=== PATIENT | female | born 1965 | race Caucasian/White ===

== ENCOUNTER → 2018-05-04 | Outpatient (CLI) | payer SELFPAY ==
--- NOTE | 2018-05-04 16:47 | Diagnostic Imaging Report ---
PROCEDURE: US carotid duplex, bilateral. TECHNIQUE: Multiple real-time grayscale images were obtained over the carotid arteries in various projections, bilaterally. Additional spectral analysis and color Doppler duplex images were also obtained. INDICATION: Carotid stenosis. FINDINGS: [id number] plaquing at the left carotid bifurcation and proximal left ICA is seen. Velocities in the left ICA are elevated reaching 260 cm/s in the mid left ICA. Velocities in the right carotid system are unremarkable. Both vertebral arteries demonstrate antegrade flow. Parameters based on the consensus panel Ramsey-Scale and Doppler ultrasound criteria published April 2003, Radiology, Volume 229. DOPPLER (peak systolic velocity M/S Right Left CCA 1.18 1.14 ICA Proximal .94 2.28 ICA Mid 1.10 2.60 ICA Distal 1.16 1.65 RATIO .98 2.28 ECA 2.44 2.62 VERT .70 .30 IMPRESSION: Bwhs-yj-yfvspnep left carotid plaque. Velocity measurements in the left ICA are consistent with 50 to 69% diameter stenosis. No stenosis in the right carotid system is identified. Dictated by: Dictated on workstation # [id number]
== END ==
LOC: RAD 14:14
PROVIDERS: ATTEND Nurse Practitioner Family
DX: I65.22 Occlusion and stenosis of left carotid artery (principal)
CPT/HCPCS: 93880

== ENCOUNTER → 2020-03-20 | Outpatient (CLI) | payer OTHER ==
[~2020-03-20] VITALS: Ht 165 cm; Wt 93.0 kg
[~2020-03-20] MED LIST: CATHETER FLUSH 10 ML SYR IV PRN; REGADENOSON 0.4 MG/5 ML SYR (LEXISCAN) IV ONE
[2020-03-20 12:27] VITALS: BP 179/80
--- NOTE | 2020-03-20 17:39 | STRESS TEST ---
DATE OF SERVICE: 03/20/2020 RESTING AND POST REGADENOSON TECHNETIUM-99M TETROFOSMIN SPECT CT IMAGING ORDERING PHYSICIAN: Dr. Young. [facility] CLINICAL DIAGNOSIS: Baseline images were carried out after injection of 10.99 mCi of technetium-99m Tetrofosmin. This was followed by 0.4 mg Regadenoson and 32.6 mCi of technetium-99m Tetrofosmin for stress imaging. The electrocardiogram showed sinus rhythm at baseline. It did not change significantly with the Regadenoson infusion. The patient noted some shortness of breath, which resolved in a few minutes. Review of images at rest and following stress does not indicate any significant perfusion defects consistent with myocardial ischemia or infarction. Gated images show normal global left ventricular systolic function with normal regional wall motion. Left ventricular ejection fraction is calculated to be 70%. Left ventricular end diastolic volume is 74 mL. TID is absent (1.09). CONCLUSIONS: 1. No evidence of any significant myocardial ischemia or infarction. 2. Normal regional wall motion, normal global left ventricular systolic function with a calculated ejection fraction of 70%. Job ID: [id number] DocumentID: [id number] Dictated Date: 03/20/2020 15:57:16 Home Health Clinician Date: 03/20/2020 17:38:10 Dictated By: GILBERTO YOUNG MD, MA, FACP, FACC, MTDD
== END ==
LOC: CARD 11:00
PROVIDERS: ATTEND Internal Medicine Cardiovascular Disease
DX: I25.10 Atherosclerotic heart disease of native coronary artery without angina pectoris (principal); I77.89 Other specified disorders of arteries and arterioles; E78.5 Hyperlipidemia, unspecified; I11.9 Hypertensive heart disease without heart failure; I34.0 Nonrheumatic mitral (valve) insufficiency; Z72.0 Tobacco use
CPT/HCPCS: 78452; 93017; 93306; A9502

== ENCOUNTER → 2020-11-15 | Outpatient (CLI) | payer OTHER | LOC: RAD 10:58 | PROVIDERS: ATTEND Nurse Practitioner Family | DX: Z12.31 Encounter for screening mammogram for malignant neoplasm of breast (principal) | CPT/HCPCS: 77063; 77067 ==